=== PATIENT | female | born 1985 | race African-American/Black ===

== ENCOUNTER 2016-11-16 10:29 | Emergency (ER) | payer MEDICAID ==
[~2016-11-16] VITALS: Ht 157.5 cm; Wt 74.1 kg
[2016-11-16 11:21] LABS: APPEARANCE,URINE CLOUDY (CLEAR); GLUCOSE, URINE (UA) NEGATIVE (NEGATIVE); KETONES,URINE NEGATIVE (NEGATIVE); LEUKOCYTE ESTERASE ,URINE NEGATIVE (NEGATIVE); OCCULT BLOOD,URINE NEGATIVE (NEGATIVE); PROTEIN,URINE NEGATIVE (NEGATIVE)
[2016-11-16 11:28] LABS: RBC,URINE 0-2 /HPF (0-2); SQUAMOUS EPITHELIAL CELL,UR Many /LPF (None Seen)
[2016-11-16 12:29] VITALS: BP 122/55
[2016-11-16] MEDS: HYDROCODONE/ACETAMINOPHEN 5-325 MG TABLET PO ONE ×2 (13:03→13:11)
[2016-11-16] MEDS ORDERED: IBUPROFEN 800 MG TABLET PO ONE (13:15)
[2016-11-19 08:09] LABS: GC DNA N.A. AMPLIFY Negative (Negative)
== END 2016-11-16 13:40 | disposition home or self-care (01) ==
LOC: EMS 10:36
DX: S83.92XA Sprain of unspecified site of left knee, initial encounter (principal); W18.39XA Other fall on same level, initial encounter; Y93.01 Activity, walking, marching and hiking; Y92.098 Other place in other non-institutional residence as the place of occurrence of the external cause; Y99.8 Other external cause status; R10.30 Lower abdominal pain, unspecified
CPT/HCPCS: 87086; 87491; 87591; 99285

== ENCOUNTER 2022-06-04 14:55 | Emergency (ER) | payer MEDICAID ==
[~2022-06-04] VITALS: Ht 170.2 cm; Wt 93.2 kg
[2022-06-04 15:21] LABS: BASOPHILS % (AUTO) 0.4 % (0.0-2.0); EOSINOPHILS % (AUTO) 1.1 % (1.0-6.0); HEMATOCRIT 36.2 % (36-46); HEMOGLOBIN 11.7 g/dL (12.0-16.0); LYMPHOCYTES # (AUTO) 2.8 K/uL (1.0-4.8); LYMPHOCYTES % (AUTO) 33.2 % (22.0-44.0); MEAN CORPUSCULAR HGB CONC 32.3 G/dL (31.0-37.0); MEAN CORPUSCULAR VOLUME 81 fL (80-100); MONOCYTES # (AUTO) 0.4 K/uL (0.1-1.0); MONOCYTES % (AUTO) 4.6 % (2.0-9.0); NEUTROPHILS % (AUTO) 60.7 % (40.0-70.0); PLATELET COUNT (AUTO) 447 K/uL (150-450); RED CELL DISTRIBUTION WIDTH 15.9 % (11.5-14.5)
[2022-06-04 15:29] LABS: ANION GAP 7 mmol/L (8-16); CARBON DIOXIDE 28 mmol/L (22-29); CHLORIDE 105 mmol/L (98-107); CREATININE 0.58 mg/dL (0.60-1.30); GLOMERULAR FILTR. RATE CALC > 60 mL/min (>60); GLUCOSE,RANDOM 111 mg/dL (70-110); SODIUM SERUM 140 mmol/L (136-145); UREA NITROGEN, BLOOD 11 mg/dL (7-18)
[2022-06-04 15:35] LABS: ALANINE AMINOTRANSFERASE 23 U/L (12-78); ALBUMIN 3.7 g/dL (3.4-5.0); ALKALINE PHOSPHATASE 85 U/L (46-116); ASPARTATE AMINOTRANSFERASE 16 U/L (15-37); BILIRUBIN,TOTAL 0.3 mg/dL (0.1-1.0); TOTAL PROTEIN, SERUM 8.1 g/dL (6.4-8.2)
[2022-06-04 15:47] LABS: APPEARANCE,URINE HAZY (CLEAR); BILIRUBIN,URINE NEGATIVE (NEGATIVE); GLUCOSE, URINE (UA) NEGATIVE (NEGATIVE); KETONES,URINE NEGATIVE (NEGATIVE); LEUKOCYTE ESTERASE ,URINE NEGATIVE (NEGATIVE); NITRATE,URINE NEGATIVE (NEGATIVE); OCCULT BLOOD,URINE NEGATIVE (NEGATIVE); PH,URINE 6.5 (5.0-8.0); PROTEIN,URINE TRACE mg/dL (NEGATIVE); SPECIFIC GRAVITIY, URINE 1.028 (1.003-1.030)
[2022-06-04 16:02] LABS: RBC,URINE None Seen /HPF (0-2); WBC,URINE None Seen /HPF (0-5)
[2022-06-04 16:03] LABS: BACTERIA,URINE Few /HPF (None Seen)
[2022-06-04] MEDS ORDERED: ONDANSETRON HCL 4 MG/2 ML VIAL IVP ONE (17:30)
[2022-06-04] MEDS: MIDAZOLAM HCL 2 MG/2 ML VIAL IVP ONE ×2 (17:35→19:06)
[2022-06-04] MEDS ORDERED: HYDROmorphone HCL 2 MG/ML SYRINGE IVP ONE (18:15)
[2022-06-04] MEDS ORDERED: ETOMIDATE 2 MG/ML 10 ML VIAL ONE (19:26)
[2022-06-04] MEDS ORDERED: ETOMIDATE 2 MG/ML 10 ML VIAL IVP ONE ×2 (19:30→19:45)
[2022-06-04] MEDS ORDERED: MIDAZOLAM HCL 5 MG/ML VIAL ONE (19:38)
[2022-06-04] MEDS ORDERED: MIDAZOLAM HCL 5 MG/ML VIAL IVP ONE (19:45)
[2022-06-04] MEDS ORDERED: HYDROCODONE/ACETAMINOPHEN 5-325 MG TABLET PO ONE (20:00)
[2022-06-04] MEDS ORDERED: PERCT PO (20:46)
[2022-06-04] MEDS ORDERED: PREMC VG (20:46)
[2022-06-04] MEDS ORDERED: IBUP-1554 PO (20:46)
[2022-06-04] MEDS ORDERED: DOXY-354 PO (20:46)
[2022-06-04] MEDS ORDERED: CEPH-558 PO (20:46)
[2022-06-04] MEDS ORDERED: ESTROGENS,CONJUGATED 0.625 MG/GM 30 GM VAG CREAM VG ONE (21:00)
[2022-06-04 21:40] VITALS: BP 105/72
== END 2022-06-04 21:50 | disposition home or self-care (01) ==
LOC: EMS 15:01
DX: N76.0 Acute vaginitis (principal); T19.2XXA Foreign body in vulva and vagina, initial encounter; W45.8XXA Other foreign body or object entering through skin, initial encounter; Y93.89 Activity, other specified; Y92.89 Other specified places as the place of occurrence of the external cause; Y99.8 Other external cause status; Z98.890 Other specified postprocedural states
CPT/HCPCS: 99285; 96374; 96375; 80053; 81001; 84703; 85025; 36415; 99152; J3490; J1170; J2250; J2405